=== PATIENT | female | born 1990 | race Caucasian/White ===

== ENCOUNTER 2020-08-13 18:17 | Emergency (ER) | payer BC ==
[~2020-08-13] VITALS: Ht 162.6 cm; Wt 116.4 kg
[2020-08-13] MEDS ORDERED: INTERMEZZO SL (18:46)
[2020-08-13] MEDS ORDERED: WELLBUTRIN SR200 MG PO (18:46)
[2020-08-13] MEDS ORDERED: ADDERALL XR30 MG PO (18:47)
[2020-08-13] MEDS ORDERED: BUSPAR 30MG30 MG/TAB PO (18:47)
[2020-08-13] MEDS ORDERED: ADDERALL10 MG PO (18:47)
[2020-08-13] MEDS ORDERED: MELATONIN5 M1 SL (18:48)
[2020-08-13] MEDS ORDERED: FLONASEALLERGY NS (18:48)
[2020-08-13] MEDS ORDERED: XYZAL5 MG PO (18:48)
[2020-08-13] MEDS ORDERED: ADRENALIN IJ (18:49)
[2020-08-13] MEDS ORDERED: [UNRECOGNIZED DRUG - OTHER] IJ (18:49)
[2020-08-13] MEDS ORDERED: APRISO0.375 GM PO (18:49)
[2020-08-13] MEDS ORDERED: FERRO-TIME325 MG PO (18:50)
[2020-08-13] MEDS ORDERED: BIOTIN10000 MC1 PO (18:51)
[2020-08-13] MEDS ORDERED: AMERGE 2.5MG T2.5 MG PO (18:51)
[2020-08-13] MEDS ORDERED: PAMELOR 10MG10 MG PO (18:51)
[2020-08-13] MEDS ORDERED: MIRENA52 MG IY (18:51)
[2020-08-13] MEDS ORDERED: REMICADE V100 MG/VIA IV (18:53)
[2020-08-13 20:55] VITALS: BP 115/70; PULSE 99; TEMP 98.4
== END 2020-08-13 20:55 | disposition home or self-care (01) ==
LOC: COL.ER 18:17
DX: T78.1XXA Other adverse food reactions, not elsewhere classified, initial encounter (principal); F90.9 Attention-deficit hyperactivity disorder, unspecified type; K51.90 Ulcerative colitis, unspecified, without complications; F41.9 Anxiety disorder, unspecified; F32.9 Major depressive disorder, single episode, unspecified; Z79.899 Other long term (current) drug therapy
CPT/HCPCS: J1200; J2930; J7030